=== PATIENT | female | born 1965 | race American Indian/Alaskan Native ===

== ENCOUNTER 2017-02-21 15:08 | Emergency (ER) | payer BC ==
[2017-02-21 15:41] LABS: Basophils % (Auto) 0.3 % (0.0-1.8); Eosinophils % (Auto) 0.3 % (0.0-4.3); Hematocrit 32.1 % (30.3-42.9); Mean Corpuscular HGB Conc 31 % (30-34); Platelet Count 377 K/mm3 (140-440); Red Blood Count 4.87 M/mm3 (3.65-5.03); White Blood Count 7.1 K/mm3 (4.5-11.0)
[2017-02-21 15:44] LABS: Mean Corpuscular Hemoglobin 21 pg (28-32); Mean Corpuscular Volume 66 fl (79-97); Red Cell Distribution Width 23.4 % (13.2-15.2)
[2017-02-21 16:04] LABS: Anion Gap 21 mmol/L; BUN/Creatinine Ratio 25; Blood Urea Nitrogen 15 mg/dL (7-17); Calcium 9.4 mg/dL (8.4-10.2); Carbon Dioxide 20 mmol/L (22-30); Chloride 94.3 mmol/L (98-107); Glucose 429 mg/dL (65-100); Potassium 4.2 mmol/L (3.6-5.0); Sodium 131 mmol/L (137-145)
[2017-02-21 16:27] LABS: Bilirubin,Urine NEG (Negative); Blood,Urine LG (Negative); Ketones,Urine TR mg/dL (Negative); Leukocyte Esterase,Urine MOD (Negative); Nitrite,Urine NEG (Negative); Urobilinogen,Urine < 2.0 mg/dL (<2.0)
[2017-02-21] MEDS ORDERED: NACL 0.9% 1000 ML 1,000 ML IV ONE ×2 (20:15→21:36)
--- NOTE | 2017-02-21 20:45 | Emergency Department Report ---
ED General Adult HPI - General Chief complaint: Hyperglycemia Stated complaint: HIGH BLOOD SUGAR Time Seen by Provider: 02/21/17 20:10 Source: patient Mode of arrival: Wheelchair Limitations: No Limitations - History of Present Illness Initial comments: 51-year-old female history of HIV just discharged from [facility] several weeks ago for treatment of abdominal abscess, viral load and CD4 counts are okay however patient has been having polyuria polydipsia since she got out so PCP this morning told glucose elevated sent to ED. Patient also with some dysuria symptoms or diagnosis on discharge here in January was DVT, abdominal abscess, HIV. Patient was transferred to [facility] at that time. Current medicines on discharge were listed as Pierre. -: Gradual, days(s) Severity scale (0 -10): 0 - Related Data Home Medications Medication Instructions Recorded Confirmed Last Taken Elviteg/Cob/Emtri/Tenof Alafen 1 tab PO QDAY 01/10/17 01/10/17 Unknown [Genvoya Tablet] Previous Rx's Medication Instructions Recorded Last Taken Type Cephalexin [Keflex] 500 mg PO Q6HR #28 capsule 02/21/17 Unknown Rx metFORMIN [Glucophage] 500 mg PO BID #30 tablet 02/21/17 Unknown Rx Allergies Allergy/AdvReac Type Severity Reaction Status Date / Time No Known Allergies Allergy Unverified 01/07/17 19:19 ED Review of Systems ROS: Stated complaint: HIGH BLOOD SUGAR Other details as noted in HPI Comment: All other systems reviewed and negative Constitutional: denies: diaphoresis, fever, malaise, weakness Eyes: denies: eye discharge, vision change Respiratory: denies: shortness of breath, SOB with exertion, SOB at rest, wheezing Cardiovascular: denies: chest pain, palpitations, dyspnea on exertion, orthopnea Gastrointestinal: denies: abdominal pain, nausea, vomiting, diarrhea, constipation, hematemesis, melena Genitourinary: frequency Musculoskeletal: denies: joint swelling, arthralgia Neurological: denies: headache, weakness, numbness, paresthesias, confusion, abnormal gait, vertigo Psychiatric: denies: depression, homicidal thoughts, suicidal thoughts Hematological/Lymphatic: denies: easy bruising ED Past Medical Hx - Past Medical History Previous Medical History?: Yes Hx Diabetes: No Hx Asthma: No Hx HIV: Yes Additional medical history: fibroids - Surgical History Past Surgical History?: Yes Additional Surgical History: vaginal injury as a child,fibroid ablasion - Social History Smoking Status: Never Smoker Substance Use Type: Alcohol - Medications Home Medications: Home Medications Medication Instructions Recorded Confirmed Last Taken Type Elviteg/Cob/Emtri/Tenof Alafen 1 tab PO QDAY 01/10/17 01/10/17 Unknown History [Genvoya Tablet] Cephalexin [Keflex] 500 mg PO Q6HR #28 capsule 02/21/17 Unknown Rx metFORMIN [Glucophage] 500 mg PO BID #30 tablet 02/21/17 Unknown Rx ED Physical Exam - General Limitations: No Limitations General appearance: alert, in no apparent distress - Head Head exam: Present: atraumatic, normocephalic - Eye Eye exam: Present: normal appearance, PERRL, EOMI - ENT ENT exam: Present: normal exam - Neck Neck exam: Present: normal inspection, full ROM. Absent: tenderness, meningismus - Respiratory Respiratory exam: Present: normal lung sounds bilaterally. Absent: respiratory distress, wheezes, rales, rhonchi, stridor, chest wall tenderness, accessory muscle use, decreased breath sounds - Cardiovascular Cardiovascular Exam: Present: regular rate, normal rhythm, normal heart sounds. Absent: systolic murmur, diastolic murmur, rubs, gallop - GI/Abdominal GI/Abdominal exam: Present: soft. Absent: tenderness, guarding, rebound - Extremities Exam Extremities exam: Present: normal inspection - Back Exam Back exam: Present: normal inspection - Neurological Exam Neurological exam: Present: alert, oriented X3 - Expanded Neurological Exam Expanded Cranial nerves: EOM's Intact: Normal, Gag Reflex: Normal Cerebellar function: Finger to Nose: Normal Motor strength exam: RUE: 5, LUE: 5, RLE: 5, LLE: 5 ED Course Vital Signs 02/21/17 02/21/17 02/21/17 15:16 19:58 20:11 Temperature 98.3 F 98.9 F Pulse Rate 102 H 101 H Respiratory 16 18 11 L Rate Blood Pressure 145/77 Blood Pressure 147/81 [Right] O2 Sat by Pulse 100 100 100 Oximetry ED Medical Decision Making - Lab Data Result diagrams: 02/21/17 15:33 02/21/17 21:13 - EKG Data -: EKG Interpreted by Me EKG shows normal: sinus rhythm, ST-T waves (no acute ischemic change) - EKG Data When compared to previous EKG there are: previous EKG unavailable - Radiology Data Radiology results: image reviewed interpreted by me: nunu - Medical Decision Making Patient with elevated anion gap glucose of 400 she was given fluids and insulin , no previous diagnosis of diabetes case will be discussed with hospitalist for further evaluation. Chest x-ray negative EKG without acute ischemic change, troponin is negative, UA looks like there is a UTI. Venous pH was normal anion gap was 17. Neck was supple no meningismus patient is afebrile. Chemistries improved, patient was given potassium replacement, anion gap is improving, troponin is negative. Patient still for outpatient follow-up to begin metformin to have her regular doctor go diabetic teaching after consultation with Dr. ewing in consultation , tolerating po and repeat vss, likely uti and will rx abx. Critical care attestation.: If time is entered above; I have spent that time in minutes in the direct care of this critically ill patient, excluding procedure time. ED Disposition Clinical Impression: Hyperglycemia, Urinary tract infection Disposition: TO HOME OR SELFCARE Is pt being admited?: No Condition: Stable Instructions: Diabetic Hyperglycemia (ED), Urinary Tract Infection in Women (ED ) Prescriptions: Cephalexin [Keflex] 500 mg PO Q6HR #28 capsule metFORMIN [Glucophage] 500 mg PO BID #30 tablet Referrals: YELITZA JAY MD [Primary Care Provider] - 3-5 Days Time of Disposition: 22:56
[2017-02-21] MEDS ORDERED: ROCEPHIN/NS 1 GM/50 ML 1 GM/50 ML BAG IV ONE (21:38)
[2017-02-21] MEDS ORDERED: cefTRIAXone 1 GM in NACL 0.9% 20 ML IV ONE (21:45)
[2017-02-21 22:22] LABS: Anion Gap 18 mmol/L; BUN/Creatinine Ratio 24; Blood Urea Nitrogen 12 mg/dL (7-17); Calcium 8.4 mg/dL (8.4-10.2); Carbon Dioxide 22 mmol/L (22-30); Chloride 98.7 mmol/L (98-107); Glucose 238 mg/dL (65-100); Potassium 3.5 mmol/L (3.6-5.0); Sodium 135 mmol/L (137-145)
--- NOTE | 2017-02-21 22:36 | XRay Report ---
FINAL REPORT EXAM: XR CHEST ROUTINE 2V HISTORY: dka TECHNIQUE: Two views of the chest Comparison: Lung bases from CT 01/08/2017 FINDINGS: Heart size upper limits normal. Lungs are clear and well expanded without focal infiltrate or consolidation. There are no effusions. IMPRESSION: Heart size upper limits normal. Clear lungs.
[2017-02-21] MEDS ORDERED: K-DUR PO ONE (22:50)
[2017-02-21 22:56] VITALS: BP 147/71
== END 2017-02-21 23:45 | disposition home or self-care (01) ==
LOC: ED 15:08
DX: N39.0 Urinary tract infection, site not specified (principal); R73.9 Hyperglycemia, unspecified
CPT/HCPCS: 36415; 71020; 80048; 81001; 82805; 82962; 84484; 85025; 87086; 93005; 93010; 96361; 96374; 96375; 99285; J0696; J7030; J1815

== ENCOUNTER 2018-03-31 23:40 | Emergency (ER) | payer BC ==
[2018-04-01] MEDS ORDERED: NACL 0.9% 1000 ML 1,000 ML IV ONE (00:58)
[2018-04-01 01:35] LABS: Bilirubin,Urine NEG (Negative); Blood,Urine NEG (Negative); Color,Urine Yellow (Yellow); Mucus,Urine FEW /HPF; Protein,Urine <15 mg/dL mg/dL (Negative)
[2018-04-01 01:42] LABS: Basophils % (Auto) 0.6 % (0.0-1.8); Eosinophils # (Auto) 0.1 K/mm3 (0.0-0.4); Eosinophils % (Auto) 1.4 % (0.0-4.3); Hematocrit 43.2 % (30.3-42.9); Hemoglobin 14.4 gm/dl (10.1-14.3); Lymphocytes # (Auto) 1.8 K/mm3 (1.2-5.4); Lymphocytes % (Auto) 27.8 % (13.4-35.0); Mean Corpuscular HGB Conc 33 % (30-34); Mean Corpuscular Volume 89 fl (79-97); Monocytes # (Auto) 0.5 K/mm3 (0.0-0.8); Monocytes % (Auto) 7.2 % (0.0-7.3); Platelet Count 199 K/mm3 (140-440); Red Blood Count 4.85 M/mm3 (3.65-5.03); Red Cell Distribution Width 14.9 % (13.2-15.2)
[2018-04-01 02:01] LABS: BUN/Creatinine Ratio 16; Blood Urea Nitrogen 8 mg/dL (7-17); Calcium 9.4 mg/dL (8.4-10.2); Hemolysis Index 5
[2018-04-01] MEDS ORDERED: TORADOL IV ONE (02:16)
--- NOTE | 2018-04-01 02:58 | Emergency Department Report ---
ED Abdominal Pain HPI - General Chief Complaint: Abdominal Pain Stated Complaint: RIGHT FLANK PAIN Time Seen by Provider: 04/01/18 01:42 Source: patient Mode of arrival: Ambulatory Limitations: No Limitations - History of Present Illness Initial Comments: 52-year-old female with a right-sided flank pain 2 weeks. Patient reports urinary frequency and foul-smelling urine. Patient denies fever, hematuria, nausea or vomiting. MD Complaint: flank pain -: week(s) (2) Location: R flank Radiation: none Migration to: no migration Severity: moderate Severity scale (0 -10): 7 Quality: aching Consistency: intermittent Improves With: nothing Worsens With: nothing Associated Symptoms: denies: nausea, vomiting, fever, chills, dysuria, hematuria - Related Data Home Medications Medication Instructions Recorded Confirmed Last Taken Elviteg/Cob/Emtri/Tenof Alafen 1 tab PO QDAY 01/10/17 01/10/17 Unknown [Genvoya Tablet] Previous Rx's Medication Instructions Recorded Last Taken Type cephALEXin [Keflex] 500 mg PO Q6HR #28 capsule 02/21/17 Unknown Rx metFORMIN [Glucophage] 500 mg PO BID #30 tablet 02/21/17 Unknown Rx Naproxen [Naprosyn] 500 mg PO BID #20 tablet 04/01/18 Unknown Rx Nitrofurantoin Monohyd/M-Cryst 100 mg PO BID #14 capsule 04/01/18 Unknown Rx [Macrobid 100 mg Capsule] traMADol [Ultram] 50 mg PO Q6HR PRN #7 tablet 04/01/18 Unknown Rx Allergies Allergy/AdvReac Type Severity Reaction Status Date / Time No Known Allergies Allergy Unverified 01/07/17 19:19 ED Review of Systems ROS: Stated complaint: RIGHT FLANK PAIN Other details as noted in HPI Comment: All other systems reviewed and negative Constitutional: denies: chills, fever Gastrointestinal: abdominal pain. denies: nausea, vomiting Genitourinary: frequency, other (reports foul-smelling urine). denies: dysuria, hematuria ED Past Medical Hx - Past Medical History Hx Diabetes: Yes Hx Asthma: No Hx HIV: Yes Additional medical history: fibroids - Surgical History Additional Surgical History: vaginal injury as a child,fibroid ablasion - Social History Smoking Status: Current Every Day Smoker Substance Use Type: None - Medications Home Medications: Home Medications Medication Instructions Recorded Confirmed Last Taken Type Elviteg/Cob/Emtri/Tenof Alafen 1 tab PO QDAY 01/10/17 01/10/17 Unknown History [Genvoya Tablet] cephALEXin [Keflex] 500 mg PO Q6HR #28 capsule 02/21/17 Unknown Rx metFORMIN [Glucophage] 500 mg PO BID #30 tablet 02/21/17 Unknown Rx Naproxen [Naprosyn] 500 mg PO BID #20 tablet 04/01/18 Unknown Rx Nitrofurantoin Monohyd/M-Cryst 100 mg PO BID #14 capsule 04/01/18 Unknown Rx [Macrobid 100 mg Capsule] traMADol [Ultram] 50 mg PO Q6HR PRN #7 tablet 04/01/18 Unknown Rx ED Physical Exam - General Limitations: No Limitations General appearance: alert, in no apparent distress - Head Head exam: Present: atraumatic, normocephalic - Eye Eye exam: Present: normal appearance - ENT ENT exam: Present: mucous membranes moist - Neck Neck exam: Present: normal inspection - Respiratory Respiratory exam: Present: normal lung sounds bilaterally. Absent: respiratory distress - Cardiovascular Cardiovascular Exam: Present: regular rate, normal rhythm - GI/Abdominal GI/Abdominal exam: Present: soft. Absent: distended, tenderness - Extremities Exam Extremities exam: Present: normal inspection - Back Exam Back exam: Absent: CVA tenderness (R), CVA tenderness (L) - Neurological Exam Neurological exam: Present: alert, oriented X3 - Psychiatric Psychiatric exam: Present: normal affect, normal mood - Skin Skin exam: Present: warm, dry, intact, normal color ED Course Vital Signs 04/01/18 04/01/18 00:47 03:23 Temperature 98.6 F Pulse Rate 74 70 Respiratory 14 18 Rate Blood Pressure 174/78 Blood Pressure 164/82 [Left] O2 Sat by Pulse 100 99 Oximetry ED Medical Decision Making - Lab Data Result diagrams: 04/01/18 01:12 04/01/18 01:12 - Radiology Data Radiology results: report reviewed, image reviewed - Medical Decision Making Patient with right flank pain x 2 weeks. Patient afebrile. Labs unremarkable. No CVA tenderness on exam. Pt reports urinary frequency and urgency and foul smelling urine. CT negative for any acute pathology. UA shows no evidence of UTI, however, sympyomatically pt seems to have a UTI. So, will prescribe macrobid. Advised outpatient follow-up. Return precautions given. - Differential Diagnosis UTI, kidney stone, pyelonephritis Critical care attestation.: If time is entered above; I have spent that time in minutes in the direct care of this critically ill patient, excluding procedure time. ED Disposition Clinical Impression: UTI (urinary tract infection) Disposition: TO HOME OR SELFCARE Is pt being admited?: No Condition: Stable Instructions: Urinary Tract Infection in Women (ED) Prescriptions: Naproxen [Naprosyn] 500 mg PO BID #20 tablet Nitrofurantoin Monohyd/M-Cryst [Macrobid 100 mg Capsule] 100 mg PO BID #14 c apsule traMADol [Ultram] 50 mg PO Q6HR PRN #7 tablet PRN Reason: Pain Referrals: PRIMARY CARE, [Primary Care Provider] - 3-[address] [facility] [Provider Group] - 3-5 Days Time of Disposition: 04:33
[2018-04-01 03:24] VITALS: BP 164/82
--- NOTE | 2018-04-01 03:43 | Cat Scan Report ---
FINAL REPORT PROCEDURE: CT ABDOMEN PELVIS WO CON TECHNIQUE: Computerized axial tomography of the abdomen and pelvis was performed without intravenous contrast. This study is performed without intravascular contrast material and its sensitivity for ab dominal and pelvic pathology, including neoplasms, inflammation, abscess, free fluid, thrombosis, art erial dissection and infarction, is reduced compared with a contrast enhanced study. HISTORY: left flank pain COMPARISON: 01/08/2017 FINDINGS: Visualized lower thorax: No significant abnormality. Liver: Liver is normal in size and density. There is a cystic lesion in the left lobe which is unchan ged from the prior study.. Spleen: Normal size and attenuation. Gallbladder and biliary system: Normal. Pancreas: Normal. Adrenals: Normal. Kidneys: There are no kidney stones or ureteral stones. There is no hydronephrosis.. GI tract: The there is no bowel obstruction, colitis or enteritis. The appendix is normal.. Lymph nodes and mesentery: Normal. Vasculature: Normal. Bladder: Normal. Reproductive organs: The uterus is enlarged and contains multiple calcified uterine fibroids unchange d from the prior study.. Peritoneum: There is no ascites or free air, abscess or adenopathy.. Musculoskeletal structures: No significant abnormality. Other: None. IMPRESSION: Liver is normal in size and density. There is a cystic lesion in the left lobe which is unchanged fro m the prior study.. There are no kidney stones or ureteral stones. There is no hydronephrosis.. There is no bowel obstruction, colitis or enteritis. The appendix is normal.. The uterus is enlarged and contains multiple calcified uterine fibroids unchanged from the prior stud y.. There is no ascites or free air, abscess or adenopathy.. .
== END 2018-04-01 04:56 | disposition home or self-care (01) ==
LOC: ED 23:40
DX: N39.0 Urinary tract infection, site not specified (principal); E11.9 Type 2 diabetes mellitus without complications; F17.200 Nicotine dependence, unspecified, uncomplicated; Z79.84 Long term (current) use of oral hypoglycemic drugs
CPT/HCPCS: 36415; 74176; 80048; 81001; 84703; 85025; 96374; 99284; J1885

== ENCOUNTER 2020-12-01 14:35 | Outpatient (CLI) | payer BC ==
--- NOTE | 2020-12-02 08:33 | Mammography Report ---
BILATERAL DIGITAL SCREENING MAMMOGRAM WITH CAD HISTORY: Screening mammogram. TECHNIQUE: Routine digital mammographic imaging performed. This examination was interpreted with guillaume lane benefit of Computer-aided Detection analysis. COMPARISON: None available. This will serve as a new baseline exam. FINDINGS: Breast Density: scattered fibroglandular appearance of the breast tissue. Digital CC and MLO views demonstrate no mammographic evidence of malignancy. IMPRESSION: No mammographic evidence of malignancy. If the clinical examination remains stable, recommend bilate ral mammogram in approximately one year. BIRADS 1: Negative. FURTHER INFORMATION: According to the [employer], yearly mammograms are recommend ed starting at age 40 and continuing as long as a woman is in good health. Clinical Breast Exams shou ld be part of a periodic health exam-about every 3 years for women in their 20s and 30s and every yea r for women 40 and over. Breast self exam is an option for women starting in their 20s. Any breast ch loree noted on a breast self exam should be reported promptly to the patient's healthcare provider. Br east MRI is recommended for women with an approximately 20-25% or greater lifetime risk of breast can cer, including women with a strong family history of breast or ovarian cancer and women who have been treated for Hodgkin's disease. A negative Mammography report should not discourage follow up or biopsy of a clinically significant f inding and/or abnormality. Dense breast tissue may obscure small neoplasms. The patient will be entered into a reminder system with a target due date for the next screening mamm ogram. Signer Name: Dillon Castillo MD Signed: 12/02/2020 8:29 AM Workstation Name: [id number]
== END 2020-12-01 14:36 | disposition home or self-care (01) ==
LOC: MAMMO 14:35
PROVIDERS: ATTEND Internal Medicine
DX: Z12.31 Encounter for screening mammogram for malignant neoplasm of breast (principal)
CPT/HCPCS: 77067

== ENCOUNTER 2021-08-31 15:26 | Emergency (ER) | payer BC ==
--- NOTE | 2021-08-31 16:28 | XRay Report ---
Left shoulder-3 views INDICATION: injury. COMPARISON: None available. IMPRESSION: No acute osseous abnormality. Tiny focus of hydroxyapatite deposition at the rotator cuf f footplate. Normal alignment. No significant DJD. Soft tissues are otherwise unremarkable. Signer Name: Jaylon Ambrose MD Signed: 08/31/2021 4:24 PM Workstation Name: [id number]
[2021-08-31] MEDS ORDERED: KETOROLAC 60 MG/2 ML INJ IM STA (21:09)
[2021-08-31] MEDS ORDERED: oxyCODONE /ACETAMINOPHEN 5-325MG TAB PO ONE (21:09)
--- NOTE | 2021-08-31 22:24 | Emergency Department Report ---
ED Extremity Problem HPI - General Chief complaint: Extremity Problem,Nontraumatic Stated complaint: LT SHOULDER PAIN Time Seen by Provider: 08/31/21 20:46 Source: patient Mode of arrival: Ambulatory Limitations: No Limitations - History of Present Illness MD Complaint: extremity pain, joint paint -: Sudden Location: left (shoulder . woke with pain) History of Same: No -: Yes arthralgia Radiation: none Severity scale (0 -10): 10 Quality: stabbing, aching, dull Improves with: nothing Worsens with: nothing Associated Symptoms: arthralgias - Related Data Home Medications Medication Instructions Recorded Confirmed Last Taken Elviteg/Cob/Emtri/Tenof Alafen 1 tab PO QDAY 01/10/17 01/10/17 Unknown [Genvoya Tablet] Previous Rx's Medication Instructions Recorded Last Taken Type cephALEXin [Keflex] 500 mg PO Q6HR #28 capsule 02/21/17 Unknown Rx metFORMIN [Glucophage] 500 mg PO BID #30 tablet 02/21/17 Unknown Rx Naproxen [Naprosyn] 500 mg PO BID #20 tablet 04/01/18 Unknown Rx Nitrofurantoin Monohyd/M-Cryst 100 mg PO BID #14 capsule 04/01/18 Unknown Rx [Macrobid 100 mg Capsule] traMADoL [Ultram] 50 mg PO Q6HR PRN #7 tablet 04/01/18 Unknown Rx Acetaminophen/Codeine [Tylenol 1 tab PO Q6H #14 tab 08/31/21 Unknown Rx /Codeine # 3 tab] Ketorolac [Toradol] 10 mg PO Q6H PRN #14 08/31/21 Unknown Rx Allergies Allergy/AdvReac Type Severity Reaction Status Date / Time No Known Allergies Allergy Unverified 01/07/17 19:19 ED Review of Systems ROS: Stated complaint: LT SHOULDER PAIN Other details as noted in HPI Comment: All other systems reviewed and negative ED Past Medical Hx - Past Medical History Hx Diabetes: Yes Hx Asthma: No Hx HIV: Yes Additional medical history: fibroids - Surgical History Additional Surgical History: vaginal injury as a child,fibroid ablasion - Social History Smoking Status: Never Smoker - Medications Home Medications: Home Medications Medication Instructions Recorded Confirmed Last Taken Type Elviteg/Cob/Emtri/Tenof Alafen 1 tab PO QDAY 01/10/17 01/10/17 Unknown History [Genvoya Tablet] cephALEXin [Keflex] 500 mg PO Q6HR #28 capsule 02/21/17 Unknown Rx metFORMIN [Glucophage] 500 mg PO BID #30 tablet 02/21/17 Unknown Rx Naproxen [Naprosyn] 500 mg PO BID #20 tablet 04/01/18 Unknown Rx Nitrofurantoin Monohyd/M-Cryst 100 mg PO BID #14 capsule 04/01/18 Unknown Rx [Macrobid 100 mg Capsule] traMADoL [Ultram] 50 mg PO Q6HR PRN #7 tablet 04/01/18 Unknown Rx Acetaminophen/Codeine [Tylenol 1 tab PO Q6H #14 tab 08/31/21 Unknown Rx /Codeine # 3 tab] Ketorolac [Toradol] 10 mg PO Q6H PRN #14 08/31/21 Unknown Rx ED Physical Exam - General Limitations: No Limitations General appearance: alert, in no apparent distress - Head Head exam: Present: atraumatic, normocephalic - Eye Eye exam: Present: normal appearance, PERRL, EOMI Pupils: Present: normal accommodation - ENT ENT exam: Present: normal exam, normal orophraynx, mucous membranes moist, TM's normal bilaterally - Neck Neck exam: Present: normal inspection - Respiratory Respiratory exam: Present: normal lung sounds bilaterally. Absent: respiratory distress - Cardiovascular Cardiovascular Exam: Present: regular rate, normal rhythm. Absent: systolic murmur, diastolic murmur, rubs, gallop - GI/Abdominal GI/Abdominal exam: Present: soft, normal bowel sounds - Extremities Exam Extremities exam: Present: normal inspection - Back Exam Back exam: Present: normal inspection - Neurological Exam Neurological exam: Present: alert, oriented X3 - Psychiatric Psychiatric exam: Present: normal affect, normal mood - Skin Skin exam: Present: warm, dry, intact, normal color. Absent: rash ED Course Vital Signs 08/31/21 08/31/21 15:52 20:14 Temperature 97.9 F Pulse Rate 91 H Respiratory 18 Rate Blood Pressure 148/85 O2 Sat by Pulse 100 98 Oximetry Critical care attestation.: If time is entered above; I have spent that time in minutes in the direct care of this critically ill patient, excluding procedure time. ED Disposition Clinical Impression: Shoulder pain Disposition: HOME / SELF CARE / HOMELESS Is pt being admited?: No Does the pt Need Aspirin: No Condition: Stable Instructions: Adhesive Capsulitis Prescriptions: Ketorolac [Toradol] 10 mg PO Q6H PRN #14 PRN Reason: Pain Acetaminophen/Codeine [Tylenol /Codeine # 3 tab] 1 tab PO Q6H #14 tab Referrals: [facility] [Provider Group] - 3-5 Days Forms: Work/School Release Form(ED)
[2021-08-31 23:15] VITALS: BP 142/86
== END 2021-08-31 23:14 | disposition home or self-care (01) ==
LOC: ED 15:26
DX: E11.9 Type 2 diabetes mellitus without complications (principal); Z21 Asymptomatic human immunodeficiency virus [HIV] infection status; Z79.899 Other long term (current) drug therapy
CPT/HCPCS: 73030; 96372; 99283; J1885